=== PATIENT | male | born 1945 | race Caucasian/White ===

== ENCOUNTER 2017-01-02 13:56 | Inpatient (IN) | payer OTHER, MEDICARE ==
[~2017-01-02] VITALS: Ht 165.1 cm; Wt 75.6 kg
--- NOTE | 2017-01-11 13:36 | MH ---
cc: Cathy PITTMAN M.D. DATE OF ADMISSION: 01/15/2017 ADMITTING DIAGNOSIS Osteoarthritic degeneration both left and right knees. REASON FOR ADMISSION Now for left and right total knee arthroplasty. ADMISSION HISTORY AND PHYSICAL This pleasant 71-year-old male is being admitted today for right and left total knee arthroplasty due to severe painful osteoarthritic degeneration of both knees. OTHER PAST HISTORY 1. 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 2. He has a history of diabetes. 3. He has had prostate cancer in the past. 4. He has broken his thumb in the past. 5. He has kidney problems. 6. Neck and back pain. 7. Dry skin. PREVIOUS SURGERIES 1. Arthroscopic surgery on his right knee in 1999. 2. Broken thumb repair in 2002. 3. Colonoscopy in 2016. CURRENT MEDICATIONS 1. . 2. Metformin. SOCIAL HISTORY He does not smoke or drink. REVIEW OF SYSTEMS Noncontributory. FAMILY HISTORY Noncontributory. ALLERGIES He has no known allergies. PHYSICAL EXAMINATION GENERAL: We find a 71-year-old male, well-developed, well-nourished, oriented x 3 complaining of pain in his knees. VITAL SIGNS: Blood pressure 120/72, pulse 78 and regular, respirations 16, temperature 97.5, pulse oximetry 97% on room air. HEENT: Eyes PERRL, EOMI. Ears, nose and mouth clear. NECK: Supple. LUNGS: Clear. HEART: Regular rate. ABDOMEN: Soft. Positive bowel sounds, nontender. EXTREMITIES: Both knees are tender with crepitance throughout range of motion. Some genu varus deformity. Neurovascularly intact to his toes. IMPRESSION AT THIS TIME Severe painful osteoarthritic degeneration both knees. PLAN Admission for bilateral total knee arthroplasty today. The patient is given prescription for postoperative pain and anticoagulation control in the office. He understands the use Hibiclens scrub and Bactroban preoperatively. Plans on going to [facility] if possible after surgery. MD BENNY Guerrero/TASIA /1:24 PM /1:27 PM
[2017-01-12] MEDS ORDERED: METF500T PO (12:32)
[2017-01-12] MEDS ORDERED: ICOS1CAP PO (12:34)
[2017-01-12] MEDS ORDERED: MAGN400T14 PO (12:35)
[2017-01-12] MEDS ORDERED: CHOL400D2 PO (12:36)
[2017-01-12] MEDS ORDERED: MULTTAB67 PO (12:37)
[2017-01-15] MEDS ORDERED: LACTATED RINGER'S 1000 ML IV PRN (07:00)
[2017-01-15] MEDS ORDERED: METOPROLOL TARTRATE 25 MG TAB PO PRN (07:00)
[2017-01-15] MEDS ORDERED: CHLORHEXIDINE GLUCONATE 2 % 1 PACK (2 CLOTHS) TOPICAL PRN (07:00)
[2017-01-15] MEDS ORDERED: VANCOMYCIN 1000 MG/NS 250 ML (for <70 kg) IV SCH ×2 (07:00)
[2017-01-15] MEDS ORDERED: POVIDONE IODINE 5% (ANTISEPSIS KIT) 4 APPLICATIONS EACH NARE PRN (07:00)
[2017-01-15] MEDS ORDERED: SODIUM CHLORID 0.9% 500 ML IV PRN (07:00)
[2017-01-15] MEDS ORDERED: CHLORHEXIDINE GLUCONATE 4% SOLN 120 ML BTL TOPICAL SCH (07:00)
[2017-01-15] MEDS ORDERED: ceFAZolin 2 GM PREMIX 50 ML IV SCH (07:00)
[2017-01-15] MEDS ORDERED: INSULIN HUMAN REGULAR 1,000 UNITS/10 ML VIAL SQ PRN (07:00)
[2017-01-15] MEDS ORDERED: BUPIVACAINE LIPOSO PF 1.3% INJ 20 ML, BUPIVACAINE PF 0.25% INJ 20 ML in SODIUM CHLORIDE... P-ARTICULR SCH (07:30)
[2017-01-15 07:31] VITALS: BP 142/86; PULSE 65; RESP 16; TEMP 98.1; O2SAT 97
[2017-01-15] MEDS ORDERED: SODIUM CHLORIDE 0.9% FLUSH 5 ML FLUSH IVF PRN (09:15)
[2017-01-15] MEDS ORDERED: Post-op Orders (for Pharmacy) MISC XX ONE (09:15)
[2017-01-15] MEDS ORDERED: ACETAMINOPHEN 325 MG TAB PO PRN (09:15)
[2017-01-15] MEDS ORDERED: diphenhydrAMINE HCL 50 MG/ML VIAL IV PRN (09:15)
[2017-01-15] MEDS ORDERED: ONDANSETRON HCL 4 MG/2 ML VIAL IVP PRN (09:15)
[2017-01-15] MEDS ORDERED: TEMAZEPAM 15 MG CAP PO PRN (09:15)
[2017-01-15] MEDS ORDERED: TRANEXAMIC ACID INJ 0 MG in SODIUM CHLORIDE 0.9% INJ 100 ML IV SCH (09:15)
[2017-01-15] MEDS ORDERED: NALOXONE HCL 0.4 MG/ML AMP IV PRN (09:15)
--- NOTE | 2017-01-15 09:18 | HHI.FF ---
Face to Face Verification Diagnosis: (1) Status post total bilateral knee replacement Physical Therapy Gait training Knee: Total knee, Protocol: Right, Protocol: Left, Gait training, Full weight bearing Nursing RN: 3 days/week x 2 weeks Nursing: Karl teaching, Dressing changes Dressing Changes: Daily dressing change, 4x4s, Gauze, Paper tape I have seen patient Segudno ArreolaJr on 01/15/17. My clinical findings support the need for the requested home health care services because: Limited ability to care for self High risk of falls I certify that my clinical findings support that this patient is homebound because: Unsteady gait/balance Cathy Rivas MD Jan 15, 2017 09:17
[2017-01-15] MEDS ORDERED: WALKER WHEELS/F1 MIS (09:20)
[2017-01-15] MEDS ORDERED: CPMMACHINE (09:21)
[2017-01-15] MEDS ORDERED: COMMODE 3-IN-11 MIS (09:22)
[2017-01-15] MEDS ORDERED: MIDAZOLAM HCL 2 MG/2 ML VIAL ONE (09:37)
[2017-01-15] MEDS ORDERED: FAMOTIDINE 20 MG/2 ML VIAL ONE (09:37)
[2017-01-15] MEDS ORDERED: MORPHINE SULFATE 30 MG/30 ML PCA IV SCH (10:00)
[2017-01-15] MEDS ORDERED: TRANEXAMIC ACID INJ 750 MG in SODIUM CHLORIDE 0.9% INJ 100 ML IV SCH ×2 (10:30→13:30)
[2017-01-15] MEDS ORDERED: fentaNYL CITRATE 250 MCG/5 ML AMP ONE ×2 (10:39→14:04)
--- NOTE | 2017-01-15 10:58 | EKG ---
Date Performed: 01/15/2017 Time Performed: 07:13:29 PTAGE: 71 years EKG: Sinus rhythm MODERATE VOLTAGE CRITERIA FOR LVH, CONSIDER NORMAL VARIANT BORDERLINE ECG NO PREVIOUS TRACING DOCTOR: Tee Crespo Interpretating Date/Time 01/15/2017 10:57:43
[2017-01-15] MEDS ORDERED: ceFAZolin INJ 1,000 MG VIAL TOPICAL ONE (11:13)
[2017-01-15] MEDS ORDERED: LACTATED RINGER'S 1000 ML INJ 1,000 ML IV ONE (12:00)
[2017-01-15] MEDS ORDERED: PROPOFOL 200 MG/20 ML AMP IV ONE (12:00)
[2017-01-15] MEDS ORDERED: ePHEDrine/NS 25 MG/5 ML SYR IV ONE (12:00)
[2017-01-15] MEDS ORDERED: ONDANSETRON HCL 4 MG/2 ML VIAL IV PUSH ONE (12:00)
[2017-01-15] MEDS ORDERED: PHENYLEPH/NS 1000 MCG/10 ML SYR IV ONE (12:00)
[2017-01-15] MEDS ORDERED: DEXAMETHASONE SOD PHOS PF 10 MG/ML VIAL IV ONE (12:25)
[2017-01-15] MEDS ORDERED: ceFAZolin INJ 1,000 MG VIAL ONE (12:25)
[2017-01-15] MEDS ORDERED: BUPIVACAINE HCL PF 0.5% 30 ML VIAL NERV BLOCK ONE (12:25)
[2017-01-15] MEDS ORDERED: DO NOT ADM ANY ANTICOAGULANT DRUGS PRN (14:38)
[2017-01-15] MEDS ORDERED: *MEPERIDINE 25 MG INJ VIAL PERIprocedural Use ONLY ONE (15:13)
--- NOTE | 2017-01-15 15:40 | PD.CONS ---
HPI Service [facility] Hospitalists Consult Requested By Dr. Rivas Reason for Consult Medical management. Primary Care Physician Wood Bennett, Diagnoses: (1) Status post total bilateral knee replacement (2) Osteoarthritis of knees, bilateral History of Present Illness Mr. Arreola is a 71-year old male patient with a known history of type 2 diabetes mellitus, prostate cancer, bilateral osteoarthritis of knees, and chronic neck and back pain who is status post bilateral knee arthroplasty by Dr. Rivas. Hospitalist team has been consulted for medical management. Patient seen and examined in PACU, patient still lethargic, just received nerve block upon arrival to PACU. Very difficult to obtain medical history from patient, medical records were reviewed as well. Patient cardiac nurse practitioner showing a possible bundle branch block with increased rate. A STAT EKG was ordered and reviewed showing sinus tachycardia with left bundle branch block with prior EKG showing sinus rhythm. Patient denies any cardiac history. Does state he has chest pain. Too lethargic to assess characteristics. Dr. Mckay called and updated regarding change in EKG and patient condition, consulted. Review of Systems ROS Limitations: Clinical Condition (post op) Except as stated in HPI: all other systems reviewed are Neg Past Family Social History Allergies: Coded Allergies: No Known Allergies (Unverified , 09/30/11) Past Medical History Osteoarthritis bilateral knee Type 2 diabetes mellitus hyperlipidemia history of prostate cancer Chronic back and neck pain Past Surgical History Denies any prior history. Reported Medications Active Reported Multiple Vitamin 1 Tab 1 Tab PO DAILY Vitamin D (Cholecalciferol) 400 Unit/Ml Drops 400 Units PO DAILY Magnebind-400 Rx (Magnesium-Calcium Carbonates-Folic Acid) 400-200-1 Mg Tab 1 Tab PO DAILY Vascepa (Icosapent) 1 Gm Cap 2 Gm PO DAILY Metformin (Metformin HCl) 500 Mg Tab 500 Mg PO BIDPC With meals Active Ordered Medications Current Medications Medications (Trade) Dose Ordered Sig/Gregory Route Start Time Stop Time Status Last Admin Lactated Ringer's 1,000 ml @ 30 mls/hr Q24H PRN IV 01/15/17 07:00 01/18/17 06:59 01/15/17 07:45 (NS 500 ml Inj) 500 ml @ 30 mls/hr [id number] PRN IV 01/15/17 07:00 01/18/17 06:59 Chlorhexidine Gluconate 1 applic 1 applic ONCE TOPICAL 01/15/17 07:00 01/18/17 06:59 Tranexamic Acid 750 mg/Sodium Chloride 107.5 ml @ 200 mls/hr ONCE IV 01/15/17 10:30 01/15/17 16:30 01/15/17 10:38 (Cyklokapron Inj/ NS Inj) 107.5 ml @ 200 mls/hr ONCE IV 01/15/17 13:30 01/15/17 19:30 (Vitamin D Liq) 400 units DAILY PO 01/16/17 09:00 (Glucophage) 500 mg BIDPC PO 01/15/17 18:00 Patient Own Medication PT OWN MED: VASC... DAILY PO 01/16/17 09:00 Future Hold Patient Own Medication PT OWN MED: MAGNEBIND-400Rx 1 TAB PO DAILY DAILY PO 01/16/17 09:00 Future Hold (Lr 1000 ml Inj) 1,000 ml @ 80 mls/hr [id number] IV 01/15/17 09:00 (NS Flush) 2 ml UNSCH PRN IVF 01/15/17 09:15 IV Flush 2 ml 2 ml BID IVF 01/15/17 21:00 (Ancef Inj/NS Inj) 100 ml @ 200 mls/hr Q6H IV 01/15/17 17:00 01/16/17 05:29 (Lovenox Inj) 30 mg Q12H SQ 01/16/17 14:00 ([place] 10-325 Mg) 1 tab Q4H PRN PO 01/15/17 09:15 ([place] 10-325 Mg) 2 tab Q6H PRN PO 01/15/17 09:15 (Tylenol) 650 mg Q6H PRN PO 01/15/17 09:15 (Theragran M Tab) 1 tab BID PO 01/16/17 21:00 03/17/17 20:59 (Zofran Inj) 4 mg Q6H PRN IVP 01/15/17 09:15 (Colace) 100 mg BID PO 01/16/17 21:00 (Restoril) 15 mg HS PRN PO 01/15/17 09:15 (Narcan Inj) 0.4 mg UNSCH PRN IV 01/15/17 09:15 (Benadryl Inj) 25 mg Q6H PRN IV 01/15/17 09:15 (Morphine 1 Mg/ ml SNOWMAKER) 30 mg UNSCH IV 01/15/17 10:00 SNOWMAKER Dosage Infused (Pha) 1 Q8HR .XX 01/15/17 14:00 Miscellaneous Information ALL NURSING DEPARTME... UNSCH PRN .XX 01/15/17 14:38 01/16/17 14:37 Family History Patient states family medical history significant for diabetes mellitus, unsure of which side. Social History Denies any history of or current tobacco use. Does admit to occasional alcohol use. Denies any illicit drug use. Physical Exam Vital Signs Vital Signs Date Time Temp Pulse Resp B/P Pulse Ox O2 Delivery O2 Flow Rate FiO2 01/15/17 07:31 98.1 65 16 142/86 97 Physical Exam GENERAL: Well-nourished, well-developed patient, in no apparent distress. SKIN: No rashes, ecchymoses or lesions. Cool and dry. HEENT: Atraumatic. Normocephalic. Pupils equal round and reactive. Extraocular motions intact. No scleral icterus. No injection or drainage. Nose without bleeding. Airway patent. NECK: Trachea midline. No JVD or lymphadenopathy. Supple. CARDIOVASCULAR: Tachycardic rhythm. No murmur appreciated. STAT EKG ordered. RESPIRATORY: Clear to auscultation. Breath sounds equal bilaterally. No wheezes , rales, or rhonchi. GASTROINTESTINAL: Abdomen soft, non-tender, nondistended. No guarding. MUSCULOSKELETAL: Extremities without clubbing, cyanosis, or edema. Bilateral knee dressings noted, with bilateral splints. Nerve block given. NEUROLOGICAL: Awake and alert. Cranial nerves II through XII intact. Motor and sensory grossly within normal limits. Five out of 5 muscle strength in all muscle groups. Normal speech. Laboratory Laboratory Tests Test 01/15/17 07:40 Blood Type B NEGATIVE Antibody Screen NEGATIVE Blood Bank Comment Assessment and Plan Assessment and Plan Mr. Arreola is a 71-year old male patient with a known history of type 2 diabetes mellitus, prostate cancer, bilateral osteoarthritis of knees, and chronic neck and back pain who is status post bilateral knee arthroplasty by Dr. Rivas. Hospitalist team has been consulted for medical management. Status post bilateral knee arthroplasty - Control pain. Morphina IV SNOWMAKER PRN. [place] tablets PO PRN per pain scale. Monitor for constipation, Colace 100 mg PO BID. Milk of magnesium PRN. - Activity and dressing changes per orthopedic surgery recommendations. - PT evaluation and treatment. OOB as tolerated. Arrhythmia with possible left bundle branch block, acute - STAT EKG performed and reviewed showing sinus tachycardia with left bundle branch block. - Cardiology called and consulted, appreciate input. Spoke with Dr. Mckay, watcher [employer] cardiology, will evaluate patient. - First trop negative, trend. Follow. - Repeat EKG this PM. - 2-D ECHO ordered. CPK ordered and pending. Follow. - Continuous cardiac monitoring. Monitor closely. - Supplemental oxygen as needed to keep SpO2 > 92%. Type 2 diabetes mellitus - Place patient on ACCU checks, sliding scale insulin, cover as needed. DVT prophylaxis: SCDs/Chemical prophylaxis per surgery recommendations. Thank you for this consult. Will follow with you. Written by Ade Watson, acting as scribe for Dr. Brown on 01/15/17 at 15:51. This note was transcribed by jacob BLACK. I, Dr. Lani Steele personally performed the history, physical exam, and medical decision making; and confirmed the accuracy of the information in the transcribed note. Authenticated by Dr. Lani Steele on 01/15/17 at 15:51. Ade Watson Jan 15, 2017 15:40 Lani Steele MD Jan 15, 2017 19:55
--- NOTE | 2017-01-15 15:44 | RADRPT ---
EXAM DATE/TIME: 01/15/2017 15:12 [facility] COMPARISON: No previous studies available for comparison. INDICATIONS : Post op left knee surgery MEDICAL HISTORY : None. SURGICAL HISTORY : None. ENCOUNTER: Initial ACUITY: 1 day PAIN SCORE: Non-responsive. LOCATION: Left knee FINDINGS: AP and lateral views of the knee following arthroplasty reveals a prosthesis in anatomic alignment. F racture is not appreciated. CONCLUSION: Status post total knee arthroplasty. Piotr Singletary MD FACR Board Certified Radiologist. This report was verified electronically.
[2017-01-15] MEDS ORDERED: MAGNESIUM HYDROXIDE SUSP 30 ML CUP PO PRN (15:45)
[2017-01-15] MEDS ORDERED: ADENOSINE IV SOLN 3 MG/ML 2 ML VIAL IV PUSH ONE (15:45)
[2017-01-15] MEDS ORDERED: DILTIAZEM HCL 25 MG/5 ML VIAL IV ONE (15:45)
[2017-01-15] MEDS: LACTATED RINGER'S 1000 ML INJ 1,000 ML IV SCH ×3 (16:00→23:09)
--- NOTE | 2017-01-15 16:08 | RADRPT ---
EXAM DATE/TIME: 01/15/2017 15:17 [facility] COMPARISON: No previous studies available for comparison. INDICATIONS : Post op right knee surgery MEDICAL HISTORY : None. SURGICAL HISTORY : None. ENCOUNTER: Initial ACUITY: 1 day PAIN SCORE: Non-responsive. LOCATION: Right knee FINDINGS: Postsurgical features of right knee arthroplasty. The arthroplasty components are in anatomic alignme nt. No significant bony fracture is identified. CONCLUSION: 1. Expected immediate postoperative appearance of right knee arthroplasty without significant acute b rosemary fracture. Flex Ashton MD on January 15, 2017 at 16:05 Board Certified Radiologist. This report was verified electronically.
[2017-01-15 16:30] LABS: AUTOMATED NEUTROPHIL # 8.7 TH/MM3 (1.8-7.7); BASOPHIL % 0.4 % (0.0-2.0); EOSINOPHIL % 0.2 % (0.0-4.0); HEMATOCRIT 37.7 % (39.0-51.0); HEMO FLAGS DIFF FINAL; LYMPH % 6.5 % (9.0-44.0); LYMPHOCYTE # 0.6 TH/MM3 (1.0-4.8); MEAN CELL VOLUME 88.6 FL (80.0-100.0); MEAN CORPUSCULAR HEMOGLOBIN 30.9 PG (27.0-34.0); MEAN CORPUSCULAR HGB CONC 34.9 % (32.0-36.0); NEUT % 90.9 % (16.0-70.0); PLATELET COUNT 139 TH/MM3 (150-450); RED BLOOD COUNT 4.25 MIL/MM3 (4.50-5.90); RED CELL DISTRIBUTION WIDTH 13.6 % (11.6-17.2); WHITE BLOOD COUNT 9.6 TH/MM3 (4.0-11.0)
[2017-01-15 16:50] LABS: ANION GAP 11 MEQ/L (5-15); AST (GOT) 22 U/L (15-37); BICARBONATE 22.4 MEQ/L (21.0-32.0); BLOOD UREA NITROGEN 19 MG/DL (7-18); CHLORIDE 108 MEQ/L (98-107); GLOMERULAR FILTRATION RATE 52 ML/MIN (>89); POTASSIUM 4.6 MEQ/L (3.5-5.1); SODIUM (NA) 141 MEQ/L (136-145)
[2017-01-15 16:51] LABS: ALT (GPT) 27 U/L (12-78)
[2017-01-15 16:54] LABS: ALKALINE PHOSPHATASE 108 U/L (45-117); CREATINE KINASE 215 U/L (39-308)
[2017-01-15] MEDS ORDERED: metFORMIN HCL 500 MG TAB PO SCH (18:00)
[2017-01-15] MEDS ORDERED: PILL SPLITTER OTHER PRN (19:45)
[2017-01-15 20:00] VITALS: BP 131/97; PULSE 102; PULSE 96; RESP 27; TEMP 98.4; O2SAT 98
[2017-01-15 20:36] VITALS: O2SAT 97
[2017-01-15 22:00] VITALS: PULSE 98
[2017-01-15] MEDS: PCA - TOTAL MG MORPHINE DELIVERED PER SHIFT SCH (22:22)
[2017-01-15] MEDS: METOPROLOL TARTRATE 25 MG TAB PO SCH (23:08)
[2017-01-15] MEDS: ASPIRIN EC 81 MG TABEC PO SCH (23:08)
[2017-01-15] MEDS: ATORVASTATIN 10 MG TAB PO SCH (23:08)
[2017-01-15] MEDS: DOCUSATE SODIUM 50 MG/SENNA 8.6 MG TAB PO SCH (23:09)
[2017-01-15] MEDS: SODIUM CHLORIDE 0.9% FLUSH 5 ML FLUSH IVF SCH (23:24)
[2017-01-16] VITALS (10 sets, daily range): BP systolic 101–145; BP diastolic 55–72; PULSE 67–99; RESP 18–26; TEMP 97.8–99.1; O2SAT 92–100
[2017-01-16 00:10] LABS: CREATINE KINASE 430 U/L (39-308)
[2017-01-16 00:54] LABS: CKMB 5.3 NG/ML (0.5-3.6)
[2017-01-16 04:34] LABS: HEMATOCRIT 32.5 % (39.0-51.0); REVIEW FLAG FINAL
[2017-01-16 05:00] LABS: ANION GAP 10 MEQ/L (5-15); AST (GOT) 23 U/L (15-37); BICARBONATE 25.2 MEQ/L (21.0-32.0); BLOOD UREA NITROGEN 17 MG/DL (7-18); CHLORIDE 107 MEQ/L (98-107); GLOMERULAR FILTRATION RATE 63 ML/MIN (>89); POTASSIUM 4.2 MEQ/L (3.5-5.1); SODIUM (NA) 142 MEQ/L (136-145)
[2017-01-16 05:04] LABS: ALKALINE PHOSPHATASE 84 U/L (45-117); ALT (GPT) 22 U/L (12-78); TOTAL BILIRUBIN ADULT 0.9 MG/DL (0.2-1.0)
[2017-01-16] MEDS: PCA - TOTAL MG MORPHINE DELIVERED PER SHIFT SCH ×2 (06:47→14:00)
--- NOTE | 2017-01-16 07:09 | MB ---
cc: ADRIENNE WING DATE OF CONSULTATION 01/15/2017 DATE OF 1945 REASON FOR CONSULTATION Chest pain HISTORY OF PRESENT ILLNESS 71-year-old male with a past medical history significant for diabetes, prostate cancer, bilateral osteoarthritis, hyperlipidemia, chronic back and neck pain who presented to the hospital for elective bilateral knee replacement with Dr. Rivas who has been consulted for chest pain and EKG changes. The patient denies having any chest pain or cardiovascular complaints. After surgery, however, per reports after he had the bilateral knee replacement, he was on PACU on observation, seemed lethargic when he complained of some apparent chest discomfort. EKG done showed sinus tachycardia with a left bundle branch which appeared to be new, thus cardiology has been consulted for further management and evaluation. On furthering questioning the patient, he wants to clarify that he did not have any chest pain in the PACU and that what he had was stiffness in his legs and knees after his surgery and that was all. He denies any cardiovascular interventions in the past, shortness of breath, dizziness, nausea, vomiting, diarrhea, diaphoresis. He is not seen by any leather production worker on an outpatient basis. REVIEW OF SYSTEMS Negative except for what is mentioned in the HPI. PAST MEDICAL HISTORY 1. Osteoarthritis bilateral knees 2. Type 2 diabetes mellitus 3. Hyperlipidemia 4. Prostate cancer 5. Chronic back and neck pain. PAST SURGICAL HISTORY None until today. ALLERGIES NO KNOWN DRUG ALLERGIES home HOME MEDICATIONS 1. Multivitamin one tablet p.o. daily 2. Vitamin D 3. Vascepa 1 gm p.o. daily 4. Metformin 500 mg p.o. b.i.d. FAMILY HISTORY Family is positive for diabetes. SOCIAL HISTORY Denies tobacco use. Reports occasional alcohol use. Denies illicit drug use. PHYSICAL EXAMINATION VITAL SIGNS: Temperature 97, respiratory rate 16, heart rate 94, blood pressure 136/68, O2 sat 99% on two liters nasal cannula. GENERAL: Awake, alert , and oriented x3 in no acute distress. NECK: No JVD, no carotid bruits. HEART: Regular rate and rhythm. No murmurs, rubs or gallops. LUNGS: Clear bilaterally on auscultation. No wheezes, no rhonchi or rales. ABDOMEN: Soft, nontender and nondistended. EXTREMITIES: No cyanosis or edema. Pulses throughout. DATA CBC hemoglobin 13, hematocrit 37, platelet count 139. Chemistries sodium 141, potassium 4.6, BUN 19, creatinine 1.36. First set of troponin less than 0.02. ASSESSMENT/PLAN 71-year-old male with cardiac risk factors that include hypertension, hyperlipidemia and age who presents with chest pain in the setting of a recent bilateral knee replacement surgery. On re-evaluation, he does not have any cardiovascular complaints. His first set of troponin are less than 0.02 which is negative. However, he does have a persistent left bundle branch block which seems to be new. He denies any chest pain, shortness of breath, palpitations, thus it would be reasonable to admit to the intensive care unit, cycle cardiac markers, order an echocardiogram to assess LV systolic dysfunction, start aspirin and beta blockers, continue telemetry monitoring. It is possible that the patient had an intermittent left bundle branch block in the setting of the tachycardia and the postoperative period. No need for any current invasive cardiac management at this time. He will to follow up with cardiology upon discharge. We will continue to follow. Thank you for the opportunity to participate in the care of this patient. Further therapy to be determined. MD ZHAO Hoang/RODOLFO /7:04 PM /6:55 AM HARI
[2017-01-16] MEDS ORDERED: ICOSAPENT ETHYL PO SCH (09:00)
[2017-01-16] MEDS: CHOLECALCIFEROL (VIT D3) LIQ 400 UNITS/ML 50 ML BOTTLE PO SCH (09:00)
[2017-01-16] MEDS ORDERED: MAGNEBIND PO SCH (09:00)
[2017-01-16] MEDS ORDERED: [UNRECOGNIZED DRUG - OTHER] PO SCH (09:00)
[2017-01-16] MEDS ORDERED: NON-FORMULARY DRUG (Multiple Vitamin 1 TAB) PO SCH (09:00)
[2017-01-16] MEDS: SODIUM CHLORIDE 0.9% FLUSH 5 ML FLUSH IVF SCH ×2 (09:00→22:46)
[2017-01-16] MEDS: ATORVASTATIN 10 MG TAB PO SCH (10:18)
[2017-01-16] MEDS: DOCUSATE SODIUM 50 MG/SENNA 8.6 MG TAB PO SCH ×2 (10:19→22:46)
[2017-01-16] MEDS: METOPROLOL TARTRATE 25 MG TAB PO SCH ×2 (10:19→22:45)
[2017-01-16] MEDS: ASPIRIN EC 81 MG TABEC PO SCH (10:19)
[2017-01-16] MEDS: LACTATED RINGER'S 1000 ML INJ 1,000 ML IV SCH ×2 (10:21→22:30)
--- NOTE | 2017-01-16 10:55 | MP ---
cc: Cathy RIVAS DATE OF SURGERY 01/15/2017 PREOPERATIVE DIAGNOSIS Osteoarthritic degeneration right and left knees. POSTOPERATIVE DIAGNOSIS Osteoarthritic degeneration right and left knees. SURGERY PERFORMED Right and left total knee arthroplasties using consensus components size 4 femur in both left and right, size 3 tibia in both left and right, 10 inserts in both left and right and a size 1 patella in the right and a 2 patella in the left with two batches of DePuy cement in each knee. SURGEON Dr. Rivas COLD MEAT CHEF ALICIA Leal ANESTHESIA General intubation PROCEDURE After successful induction of anesthesia, the patient is placed on the operating room table in the supine position. The right and left knees were prepped and draped in the usual manner. A tourniquet is inflated at the right upper thigh and set to 300 mmHg pressure after exsanguination of the right lower extremity. A longitudinal incision is made extending from 3 inches proximal to the superior pole of the patella, across the patella in longitudinal fashion, and down past the insertion of the tibial tubercle into the proximal tibia. The incision is carried down through subcutaneous tissue along the medial aspect of the patella and retinaculum, down through the capsule to expose the knee joint. The patella and patellar tendon are freed up enough to allow the patella to be inverted and retracted off the lateral side of the knee joint. The knee joint is left exposed. Small osteophytes are removed. All soft tissue is removed to allow proper position of the femoral and tibial cutting jig guide. The first femoral jig is then inserted along the distal end of the femur after first measuring to decide whether this is a small, medium, or large component. The notch is then drilled and the tibial cutting guide inserted into the femoral cutting guide, along with the ankle brace to allow for proper measurement of the tibial cutting surface that needed to be resected. Pins are inserted into the tibial cutting jig and femoral cutting jig to hold them in place. An oscillating saw is then used to resect the surface of the tibia. The surface of the tibia is then completely removed using sharp and blunt dissection. The anterior and posterior cuts of the femur are then made as well using an oscillating saw through the cutting guide. All guides are then removed and the varus/valgus angulation cutting guide applied to the femur for proper measurement of the proper amount of valgus. The anterior cutting guide for the femur is then inserted at the anterior femoral cuts made. Next, the first block trial is inserted into the femur to allow for proper condyle drill holes to be made which are then made followed by removal of the bone between the condyles using an oscillating saw as well as the bone removed at the most posterior surface of the condyle. After this, this guide is removed and the chamfer cuts made using the chamfer cutting guide from both anterior and posterior. Next, the femoral trial is then inserted, the tibial surface reflected anterior to expose the tibial surface and a tibial stem guide is inserted after first measuring for a standard, standard plus, large, or large plus surface to be used. After the stem is impacted the trial tibial surface is applied followed by the trial meniscal components. After full range of motion is found with the appropriate length meniscal components varying the patella is prepared by resecting the posterior aspect of the patella using an oscillating saw, inserting a trial. The trial is then removed and the cruciate cutting guide applied using the bur to cut the cruciate cuts. After cruciate cuts are made all trials are removed. The wound is irrigated copiously with antibiotic solution and Water-Pik and the actual components inserted into place using the Consensus system. After the cement has hardened and the components are found to have full range of motion with no instability, the tourniquet is deflated, total tourniquet time being 57 minutes at 300 mmHg pressure. The left knee was then done using the tourniquet and total tourniquet time being 55 minutes at 300 mmHg. The wounds again were irrigated copiously with antibiotic solution, meticulous hemostasis achieved. No drain utilized. Deep fascia approximated in each knee and using number #2 quill, subcutaneous tissue approximated using interrupted and running 2-0 and 4-0 Monocryl sutures and Steri-Strips, a sterile dressing and knee immobilizer. No drain utilized. Estimated blood loss throughout the whole procedure 200 cc. Sponge and suture count correct. The hair assistant was present during the entire procedure including patient positioning and procedure. The medical necessity of a nurse practitioner as hair assistant was indicated in this case due to the surgical complexity of the case itself. During the surgical case, the certified ophthalmic surgical assistant was working the back table while my surgical endoscopist, COMPUTER NETWORKER, was directly assisting me. The patient tolerated the procedure well and left the operating room in satisfactory condition. J. MD BENNY Bergeron/JAMESL /2:12 PM /10:41 AM
--- NOTE | 2017-01-16 11:29 | PD.ORT.PN ---
Subjective Subjective Remarks pt fairly comfortable today. No complaints of chest pain. Objective Vitals Vital Signs Date Time Temp Pulse Resp B/P Pulse Ox O2 Delivery O2 Flow Rate FiO2 01/16/17 08:05 99 Nasal Cannula 1.50 01/16/17 06:47 12 01/16/17 06:00 67 01/16/17 04:00 70 01/16/17 04:00 99.1 97 18 101/58 97 01/16/17 02:00 71 01/16/17 00:00 97.8 99 24 104/59 100 01/16/17 00:00 99 01/15/17 22:22 10 01/15/17 22:00 98 01/15/17 20:36 97 Nasal Cannula 3.00 01/15/17 20:00 98.4 102 27 131/97 98 01/15/17 20:00 96 01/15/17 18:00 97.6 94 16 136/68 99 Nasal Cannula 2 01/15/17 17:00 91 16 135/63 99 Nasal Cannula 2 01/15/17 16:30 96 16 149/86 98 Nasal Cannula 2 01/15/17 16:30 15 01/15/17 16:25 15 01/15/17 16:13 15 01/15/17 16:00 97.8 101 16 152/76 98 Nasal Cannula 2 01/15/17 15:45 91 15 158/82 96 Nasal Cannula 2 01/15/17 15:30 101 15 164/83 100 Nasal Cannula 3 01/15/17 15:15 111 14 123/81 99 Nasal Cannula 3 01/15/17 15:00 114 13 132/61 98 Nasal Cannula 4 01/15/17 14:45 98.1 96 12 135/95 97 Nasal Cannula 4 I/O 01/15/17 01/15/17 01/15/17 01/16/17 01/16/17 01/16/17 07:00 15:00 23:00 07:00 15:00 23:00 Intake Total 1200 ml 1232 ml 458 ml Output Total 200 ml 1100 ml 750 ml Balance 1000 ml 132 ml -292 ml Intake Oral 480 ml 120 ml IV Total 752 ml 338 ml Other 1200 ml Output Urine Total 1100 ml 750 ml Estimated Blood Loss 200 ml # Bowel Movements 0 0 Result Diagram: 01/16/17 03301/16/17 6542 Objective Remarks Knee dressings dry and intact. No calf tenderness. Assessment & Plan Ortho Post Op Day #: 1 Problem List: Assessment and Plan Doing well overall. Transfer to ortho floor. Plan rehab at [place]. Cathy Rivas MD Jan 16, 2017 11:29
--- NOTE | 2017-01-16 15:11 | HHI.PR ---
Subjective Remarks Seen earlier in the morning; Patient feels much better. No tachycardia, no chest pain or sob. No n/v/d/c. Says he is hungry. Objective Vitals Vital Signs Date Time Temp Pulse Resp B/P Pulse Ox O2 Delivery O2 Flow Rate FiO2 01/16/17 12:00 70 01/16/17 12:00 98.5 70 18 118/55 96 01/16/17 10:00 76 01/16/17 08:05 99 Nasal Cannula 1.50 01/16/17 08:00 98.3 68 26 111/56 99 01/16/17 08:00 68 01/16/17 06:47 12 01/16/17 06:00 67 01/16/17 04:00 70 01/16/17 04:00 99.1 97 18 101/58 97 01/16/17 02:00 71 01/16/17 00:00 97.8 99 24 104/59 100 01/16/17 00:00 99 01/15/17 22:22 10 01/15/17 22:00 98 01/15/17 20:36 97 Nasal Cannula 3.00 01/15/17 20:00 98.4 102 27 131/97 98 01/15/17 20:00 96 01/15/17 18:00 97.6 94 16 136/68 99 Nasal Cannula 2 01/15/17 17:00 91 16 135/63 99 Nasal Cannula 2 01/15/17 16:30 96 16 149/86 98 Nasal Cannula 2 01/15/17 16:30 15 01/15/17 16:25 15 01/15/17 16:13 15 01/15/17 16:00 97.8 101 16 152/76 98 Nasal Cannula 2 01/15/17 15:45 91 15 158/82 96 Nasal Cannula 2 01/15/17 15:30 101 15 164/83 100 Nasal Cannula 3 01/15/17 15:15 111 14 123/81 99 Nasal Cannula 3 I/O 01/15/17 01/15/17 01/15/17 01/16/17 01/16/17 01/16/17 07:00 15:00 23:00 07:00 15:00 23:00 Intake Total 1200 ml 1232 ml 458 ml 636 ml Output Total 200 ml 1100 ml 750 ml 550 ml Balance 1000 ml 132 ml -292 ml 86 ml Intake Oral 480 ml 120 ml 476 ml IV Total 752 ml 338 ml 160 ml Other 1200 ml Output Urine Total 1100 ml 750 ml 550 ml Estimated Blood Loss 200 ml # Bowel Movements 0 0 0 Result Diagram: 01/16/17 0330 01/16/17 0330 Imaging Last Impressions Knee X-Ray 01/15/17 0912 Signed Impressions: Service Date/Time: Sunday, January 15, 2017 15:12 - CONCLUSION: Status post total knee arthroplasty. Piotr Singletary MD Objective Remarks GENERAL: Well-nourished, well-developed patient, in no apparent distress. SKIN: No rashes, ecchymoses or lesions. Cool and dry. HEENT: Atraumatic. Normocephalic. Pupils equal round and reactive. Extraocular motions intact. No scleral icterus. No injection or drainage. Nose without bleeding. Airway patent. NECK: Trachea midline. No JVD or lymphadenopathy. Supple. CARDIOVASCULAR: RRR. No murmur appreciated. RESPIRATORY: Clear to auscultation. Breath sounds equal bilaterally. No wheezes , rales, or rhonchi. GASTROINTESTINAL: Abdomen soft, non-tender, nondistended. No guarding. MUSCULOSKELETAL: Extremities without clubbing, cyanosis, or edema. Bilateral knee dressings noted, with bilateral splints. Nerve block given. NEUROLOGICAL: Awake and alert. Cranial nerves II through XII intact. Motor and sensory grossly within normal limits. Five out of 5 muscle strength in all muscle groups. Normal speech. A/P Problem List: (1) Status post total bilateral knee replacement ICD Code: Z96.653 Status: Acute (2) Osteoarthritis of knees, bilateral ICD Code: M17.0 Status: Acute Assessment and Plan Mr. Arreola is a 71-year old male patient with a known history of type 2 diabetes mellitus, prostate cancer, bilateral osteoarthritis of knees, and chronic neck and back pain who is status post bilateral knee arthroplasty by Dr. Rivas. Hospitalist team has been consulted for medical management. Status post bilateral knee arthroplasty - Control pain. Morphina IV [employer]GER PRN. [place] tablets PO PRN per pain scale. Monitor for constipation, Colace 100 mg PO BID. Milk of magnesium PRN. - Activity and dressing changes per orthopedic surgery recommendations. - PT evaluation and treatment. OOB as tolerated. Tachycardia with left bundle branch block, acute - STAT EKG performed and reviewed showing sinus tachycardia with left bundle branch block. - Cardiology called and consulted, appreciate input. Spoke with Dr. 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 - Trop negative. CPK negative. - 2-D ECHO pending. - Continuous cardiac monitoring. Monitor closely. - Supplemental oxygen as needed to keep SpO2 > 92%. -Monitor on telemetry Type 2 diabetes mellitus - Place patient on ACCU checks, sliding scale insulin, cover as needed. DVT prophylaxis: SCDs/Chemical prophylaxis per surgery recommendations. Improved. HR is better controlled, transfer to ortho floor. Lani Steele MD Jan 16, 2017 15:11
[2017-01-16] MEDS: ENOXAPARIN SODIUM 30 MG/0.3 ML SYRINGE SQ SCH (16:43)
[2017-01-16] MEDS: INSULIN ASPART SUPPLEMENTAL SCALE SQ SCH ×2 (17:45→22:56)
[2017-01-16] MEDS ORDERED: DEXTROSE 50% IN WATER 50 ML VIAL(D50) IV PRN (17:45)
[2017-01-16] MEDS ORDERED: GLUCAGON 1 MG/ML VIAL OTHER PRN (17:45)
--- NOTE | 2017-01-16 18:38 | PD.CARD.PN ---
Subjective Subjective Remarks no CV complaints no overnight events negative cardiac markers EF 60% on ECHO EKG persistent LBBB Objective Medications Current Medications Medications (Trade) Dose Ordered Sig/Gregory Route Start Time Stop Time Status Last Admin Lactated Ringer's 1,000 ml @ 30 mls/hr Q24H PRN IV 01/15/17 07:00 01/18/17 06:59 01/15/17 07:45 (NS 500 ml Inj) 500 ml @ 30 mls/hr [id number] PRN IV 01/15/17 07:00 01/18/17 06:59 (Hibiclens 4% Top Soln) 1 applic ONCE TOPICAL 01/15/17 07:00 01/18/17 06:59 (Vitamin D Liq) 400 units DAILY PO 01/16/17 09:00 Patient Own Medication PT OWN MED: VASC... DAILY PO 01/16/17 09:00 Hold Patient Own Medication PT OWN MED: [id number] 1 TAB PO DAILY DAILY PO 01/16/17 09:00 Hold (Lr 1000 ml Inj) 1,000 ml @ 80 mls/hr [id number] IV 01/15/17 09:00 01/16/17 10:21 (NS Flush) 2 ml UNSCH PRN IVF 01/15/17 09:15 (NS Flush) 2 ml BID IVF 01/15/17 21:00 01/15/17 23:24 (Lovenox Inj) 30 mg Q12H SQ 01/16/17 14:00 01/16/17 16:43 ([place] 10-325 Mg) 1 tab Q4H PRN PO 01/15/17 09:15 ([place] 10-325 Mg) 2 tab Q6H PRN PO 01/15/17 09:15 (Tylenol) 650 mg Q6H PRN PO 01/15/17 09:15 01/16/17 18:17 (Theragran M Tab) 1 tab BID PO 01/16/17 21:00 03/17/17 20:59 (Zofran Inj) 4 mg Q6H PRN IVP 01/15/17 09:15 (Colace) 100 mg BID PO 01/16/17 21:00 (Restoril) 15 mg HS PRN PO 01/15/17 09:15 (Nilda-Colace) 1 tab BID PO 01/15/17 21:00 01/16/17 10:19 (Milk Of Magnesia Liq) 30 ml Q12H PRN PO 01/15/17 15:45 (Ecotrin Ec) 81 mg DAILY PO 01/15/17 19:15 01/16/17 10:19 (Lopressor) 12.5 mg Q12HR PO 01/15/17 21:00 01/16/17 10:19 (Lipitor) 10 mg DAILY PO 01/15/17 19:15 01/16/17 10:18 (Pill Splitter) 1 ea UNSCH PRN OTHER 01/15/17 19:45 (D50w (Vial) Inj) 50 ml UNSCH PRN IV 01/16/17 17:45 (Glucagon Inj) 1 mg UNSCH PRN OTHER 01/16/17 17:45 Vital Signs / I&O Vital Signs Date Time Temp Pulse Resp B/P Pulse Ox O2 Delivery O2 Flow Rate FiO2 01/16/17 16:00 99.1 82 18 127/72 92 01/16/17 12:00 70 01/16/17 12:00 98.5 70 18 118/55 96 01/16/17 10:00 76 01/16/17 08:05 99 Nasal Cannula 1.50 01/16/17 08:00 98.3 68 26 111/56 99 01/16/17 08:00 68 01/16/17 06:47 12 01/16/17 06:00 67 01/16/17 04:00 70 01/16/17 04:00 99.1 97 18 101/58 97 01/16/17 02:00 71 01/16/17 00:00 97.8 99 24 104/59 100 01/16/17 00:00 99 01/15/17 22:22 10 01/15/17 22:00 98 01/15/17 20:36 97 Nasal Cannula 3.00 01/15/17 20:00 98.4 102 27 131/97 98 01/15/17 20:00 96 I/O 01/15/17 01/15/17 01/15/17 01/16/17 01/16/17 01/16/17 07:00 15:00 23:00 07:00 15:00 23:00 Intake Total 1200 ml 1232 ml 458 ml 636 ml Output Total 200 ml 1100 ml 750 ml 550 ml Balance 1000 ml 132 ml -292 ml 86 ml Intake Oral 480 ml 120 ml 476 ml IV Total 752 ml 338 ml 160 ml Other 1200 ml Output Urine Total 1100 ml 750 ml 550 ml Estimated Blood Loss 200 ml # Bowel Movements 0 0 0 Physical Exam GENERAL: Well-nourished, well-developed patient. SKIN: Warm and dry. HEAD: Normocephalic. EYES: No scleral icterus. No injection or drainage. NECK: Supple, trachea midline. No JVD or lymphadenopathy. CARDIOVASCULAR: Regular rate and rhythm without murmurs, gallops, or rubs. RESPIRATORY: Breath sounds equal bilaterally. No accessory muscle use. GASTROINTESTINAL: Abdomen soft, non-tender, nondistended. EXTREMITIES: No cyanosis, or edema. NEUROLOGICAL: Awake, alert, and oriented x 3. Non-focal. Laboratory Laboratory Tests Test 01/15/17 01/16/17 23:10 03:30 Total Creatine Kinase 430 U/L Creatine Kinase MB 5.3 NG/ML Creatine Kinase MB % 1.2 % Troponin I LESS THAN 0.02 NG/ML Hemoglobin 11.6 GM/DL Hematocrit 32.5 % Sodium Level 142 MEQ/L Potassium Level 4.2 MEQ/L Chloride Level 107 MEQ/L Carbon Dioxide Level 25.2 MEQ/L Anion Gap 10 MEQ/L Blood Urea Nitrogen 17 MG/DL Creatinine 1.15 MG/DL Estimat Glomerular Filtration 63 ML/MIN Rate Random Glucose 204 MG/DL Calcium Level 8.6 MG/DL Total Bilirubin 0.9 MG/DL Aspartate Amino Transf 23 U/L (AST/SGOT) Alanine Aminotransferase 22 U/L (ALT/SGPT) Alkaline Phosphatase 84 U/L Total Protein 5.3 GM/DL Albumin 3.0 GM/DL Imaging Last Impressions Knee X-Ray 01/15/17 0912 Signed Impressions: Service Date/Time: Sunday, January 15, 2017 15:12 - CONCLUSION: Status post total knee arthroplasty. Piotr Singletary MD Assessment and Plan Problem List: (1) CAD (coronary artery disease) Assessment and Plan: No CV events No CV complaints Negative Cardiac markers x3 Normal LV function on ECHO Persistent LBBB on EKG Recommendations: Cont ASA and Lopressor F/U with cardiology upon discharge Sign off (2) Diabetes (3) Prostate cancer (4) Chronic kidney disease (5) Osteoarthritis of knees, bilateral Mckay-Lance Lovelace MD Jan 16, 2017 18:38
[2017-01-16] MEDS: MULTIVITAMINS/MINERALS THERAPEUTIC TAB PO SCH (22:46)
[2017-01-16] MEDS: DOCUSATE SODIUM 100 MG CAP PO SCH (22:46)
[2017-01-17] VITALS (8 sets, daily range): BP systolic 119–154; BP diastolic 60–75; PULSE 76–89; RESP 17–18; TEMP 96.2–99.9; O2SAT 91–96
[2017-01-17] MEDS: ENOXAPARIN SODIUM 30 MG/0.3 ML SYRINGE SQ SCH ×2 (03:09→13:38)
[2017-01-17] MEDS: ACETAMINOPHEN/HYDROcodone 325 MG/10 MG TAB PO PRN ×4 (04:23→22:26)
--- NOTE | 2017-01-17 07:01 | EKG ---
Date Performed: 01/15/2017 Time Performed: 15:37:16 PTAGE: 71 years EKG: SINUS TACHYCARDIA POSSIBLE LEFT ATRIAL ENLARGEMENT MARKED LEFT AXIS DEVIATION LEFT BUNDLE B RANCH BLOCK Compared to the previous tracing there is now a Left bundle branch block ABNORMAL ECG PREVIOUS TRACING : 01/15/2017 07.13 DOCTOR: Audrey Dee Interpretating Date/Time 01/17/2017 06:59:12
--- NOTE | 2017-01-17 07:01 | EKG ---
Date Performed: 01/15/2017 Time Performed: 22:06:12 PTAGE: 71 years EKG: Sinus rhythm LEFT BUNDLE BRANCH BLOCK ABNORMAL ECG Compared to prior tracing no significant change PREVIOUS TRACING : 01/15/2017 15.37 DOCTOR: Audrey Dee Interpretating Date/Time 01/17/2017 06:59:19
[2017-01-17 07:12] LABS: HEMATOCRIT 27.9 % (39.0-51.0)
[2017-01-17 07:22] LABS: REVIEW FLAG FINAL
--- NOTE | 2017-01-17 07:57 | PD.ORT.PN ---
Subjective Subjective Remarks pt painful today. No complaints of chest pain. Objective Vitals Vital Signs Date Time Temp Pulse Resp B/P Pulse Ox O2 Delivery O2 Flow Rate FiO2 01/17/17 04:00 99.4 84 17 140/75 96 01/17/17 00:00 99.9 85 18 154/74 96 01/16/17 19:00 98.2 88 18 145/67 96 01/16/17 16:00 99.1 82 18 127/72 92 01/16/17 12:00 70 01/16/17 12:00 98.5 70 18 118/55 96 01/16/17 10:00 76 01/16/17 08:05 99 Nasal Cannula 1.50 01/16/17 08:00 98.3 68 26 111/56 99 01/16/17 08:00 68 I/O 01/16/17 01/16/17 01/16/17 01/17/17 01/17/17 01/17/17 07:00 15:00 23:00 07:00 15:00 23:00 Intake Total 458 ml 636 ml 480 ml 240 ml Output Total 750 ml 550 ml 500 ml 450 ml Balance -292 ml 86 ml -20 ml -210 ml Intake Oral 120 ml 476 ml 480 ml 240 ml IV Total 338 ml 160 ml Output Urine Total 750 ml 550 ml 500 ml 450 ml # Bowel Movements 0 0 0 0 Result Diagram: 01/17/17 0635 01/16/17 0330 Objective Remarks Knee dressings dry and intact. No calf tenderness. Assessment & Plan Ortho Post Op Day #: 2 Problem List: Assessment and Plan Doing well overall. Try tramadol for extra pain control. Cont PT. Cathy Rivas MD Jan 17, 2017 07:57
[2017-01-17] MEDS: INSULIN ASPART SUPPLEMENTAL SCALE SQ SCH ×5 (08:07→21:00)
[2017-01-17] MEDS ORDERED: traMADol HCL 50 MG TAB PO ONE (08:30)
[2017-01-17] MEDS: DOCUSATE SODIUM 100 MG CAP PO SCH ×2 (08:55→22:24)
[2017-01-17] MEDS: SODIUM CHLORIDE 0.9% FLUSH 5 ML FLUSH IVF SCH (08:55)
[2017-01-17] MEDS: ATORVASTATIN 10 MG TAB PO SCH (08:56)
[2017-01-17] MEDS: MULTIVITAMINS/MINERALS THERAPEUTIC TAB PO SCH ×2 (08:56→22:24)
[2017-01-17] MEDS: METOPROLOL TARTRATE 25 MG TAB PO SCH ×2 (08:56→22:23)
[2017-01-17] MEDS: DOCUSATE SODIUM 50 MG/SENNA 8.6 MG TAB PO SCH ×2 (08:56→21:00)
[2017-01-17] MEDS: ASPIRIN EC 81 MG TABEC PO SCH (08:56)
[2017-01-17] MEDS: CHOLECALCIFEROL (VIT D3) LIQ 400 UNITS/ML 50 ML BOTTLE PO SCH (09:59)
[2017-01-17] MEDS ORDERED: BACITRACIN OINT 0.9 GM PKT TOP PRN (10:15)
[2017-01-17] MEDS: LACTATED RINGER'S 1000 ML INJ 1,000 ML IV SCH (11:00)
--- NOTE | 2017-01-17 14:06 | HHI.PR ---
Subjective Remarks Patient is in the chair. Says he has some pain but is fairly controlled by meds. No palpitations, n/v/d/c. Denies chest pain or sob. Objective Vitals Vital Signs Date Time Temp Pulse Resp B/P Pulse Ox O2 Delivery O2 Flow Rate FiO2 01/17/17 12:00 96.2 76 18 119/66 94 01/17/17 10:37 93 21 01/17/17 09:07 Room Air 01/17/17 08:00 97.6 77 18 124/72 93 01/17/17 04:00 99.4 84 17 140/75 96 01/17/17 00:00 99.9 85 18 154/74 96 01/16/17 19:00 98.2 88 18 145/67 96 01/16/17 16:00 99.1 82 18 127/72 92 I/O 01/16/17 01/16/17 01/16/17 01/17/17 01/17/17 01/17/17 07:00 15:00 23:00 07:00 15:00 23:00 Intake Total 458 ml 636 ml 480 ml 240 ml Output Total 750 ml 550 ml 500 ml 450 ml Balance -292 ml 86 ml -20 ml -210 ml Intake Oral 120 ml 476 ml 480 ml 240 ml IV Total 338 ml 160 ml Output Urine Total 750 ml 550 ml 500 ml 450 ml # Bowel Movements 0 0 0 0 Result Diagram: 01/17/17 0635 01/16/17 0330 Imaging Last Impressions Knee X-Ray 01/15/17911 Signed Impressions: Service Date/Time: Sunday, January 15, 2017 15:12 - CONCLUSION: Status post total knee arthroplasty. Piotr Singletary MD Objective Remarks GENERAL: Well-nourished, well-developed patient, in no apparent distress. SKIN: No rashes, ecchymoses or lesions. Cool and dry. HEENT: Atraumatic. Normocephalic. Pupils equal round and reactive. Extraocular motions intact. No scleral icterus. No injection or drainage. Nose without bleeding. Airway patent. NECK: Trachea midline. No JVD or lymphadenopathy. Supple. CARDIOVASCULAR: RRR. No murmur appreciated. RESPIRATORY: Clear to auscultation. Breath sounds equal bilaterally. No wheezes , rales, or rhonchi. GASTROINTESTINAL: Abdomen soft, non-tender, nondistended. No guarding. MUSCULOSKELETAL: Extremities without clubbing, cyanosis, or edema. Bilateral knee dressings noted, with bilateral splints. Nerve block given. NEUROLOGICAL: Awake and alert. Cranial nerves II through XII intact. Motor and sensory grossly within normal limits. Five out of 5 muscle strength in all muscle groups. Normal speech. A/P Problem List: (1) Status post total bilateral knee replacement ICD Code: Z96.653 Status: Acute (2) Osteoarthritis of knees, bilateral ICD Code: M17.0 Status: Acute Assessment and Plan Mr. Arreola is a 71-year old male patient with a known history of type 2 diabetes mellitus, prostate cancer, bilateral osteoarthritis of knees, and chronic neck and back pain who is status post bilateral knee arthroplasty by Dr. Rivas. Hospitalist team has been consulted for medical management. Status post bilateral knee arthroplasty - Control pain. Morphina IV HEAD SAMPLER PRN. [place] tablets PO PRN per pain scale. Monitor for constipation, Colace 100 mg PO BID. Milk of magnesium PRN. - Activity and dressing changes per orthopedic surgery recommendations. - PT evaluation and treatment. OOB as tolerated. Tachycardia with left bundle branch block, acute - STAT EKG performed and reviewed showing sinus tachycardia with left bundle branch block. - Cardiology called and consulted, appreciate input. 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 - Trop negative. CPK negative. - 2-D ECHO pending. - Continuous cardiac monitoring. Monitor closely. - Supplemental oxygen as needed to keep SpO2 > 92%. -Monitor on telemetry Type 2 diabetes mellitus - Hold home meds during hospitalization. Restart home meds at [place]. Place patient on ACCU checks, sliding scale insulin, cover as needed DVT prophylaxis: SCDs/Chemical prophylaxis per surgery recommendations. Improved. HR is better controlled, transfer to ortho floor. Lani Steele MD Jan 17, 2017 14:06
[2017-01-17] MEDS ORDERED: DEXTROSE 50% IN WATER 50 ML VIAL(D50) IV PRN (14:15)
[2017-01-17] MEDS ORDERED: GLUCAGON 1 MG/ML VIAL OTHER PRN (14:15)
--- NOTE | 2017-01-17 14:35 | ECHRPT ---
Indication: Chest pain, unspecified Indication: Chest pain, unspecified CONCLUSIONS Aortic valve sclerosis is present.There is trace tricuspid valve regurgitation. There is estimated m ild pulmonary hypertension present (range 40-50 mmHg).The pulmonary valve is not well visualized. BP: 118 / 55 HR: Rhythm: Sinus MEASUREMENTS (Male / Female) Normal Values Technical Quality:Good 2D ECHO LV Diastolic Diameter PLAX 4.9 cm 4.2 - 5.9 / 3.9 - 5.3 cm LV Systolic Diameter PLAX 3.3 cm IVS Diastolic Thickness 1.1 cm 0.6 - 1.0 / 0.6 - 0.9 cm LVPW Diastolic Thickness 1.1 cm 0.6 - 1.0 / 0.6 - 0.9 cm LV Relative Wall Thickness 0.4 RV Internal Dim ED PLAX 2.6 cm LVOT Diameter 2.1 cm LA Systolic Diameter LX 3.2 cm 3.0 - 4.0 / 2.7 - 3.8 cm M-MODE Aortic Root Diameter MM 2.6 cm AV Cusp Separation MM 1.7 cm DOPPLER AV Peak Velocity 197.0 cm/s AV Peak Gradient 15.5 mmHg LVOT Peak Velocity 152.0 cm/s LVOT Peak Gradient 9.2 mmHg AV Area Cont Eq pk 2.7 cm MV Area PHT 3.1 cm Mitral E Point Velocity 69.1 cm/s Mitral A Point Velocity 72.6 cm/s Mitral E to A Ratio 1.0 LV E' Lateral Velocity 8.0 cm/s Mitral E to LV E' Lateral Ratio 8.6 LV E' Septal Velocity 10.4 cm/s Mitral E to LV E' Septal Ratio 6.6 TV Peak Velocity 316.0 cm/s PV Peak Velocity 133.0 cm/s PV Peak Gradient 7.1 mmHg FINDINGS Left Ventricle The left ventricular systolic function is normal with an estimated ejection fraction in the range of 60-65%. Right Ventricle Normal right ventricular size and systolic function. Left Atrium The left atrial size is normal. Right Atrium The right atrial size is normal. Atrial Septum Normal atrial septal thickness without atrial level shunting by limited color doppler interrogation. Aorta The aortic root and proximal ascending aorta are normal in size on limited imaging. Mitral Valve Structurally normal mitral valve. No mitral valve stenosis or regurgitation. Aortic Valve Trileaflet aortic valve. Aortic valve sclerosis is present. Tricuspid Valve Structurally normal tricuspid valve. There is trace tricuspid valve regurgitation. There is estimate d mild pulmonary hypertension present (range 40-50 mmHg). Pulmonary Valve The pulmonary valve is not well visualized. Vessels The inferior vena cava is normal in size. Pericardium No pericardial effusion. Alfonso Up MD, FACC, [facility] [place] (Electronically Signed) Final Date:17 January 2017 14:34
[2017-01-17] MEDS ORDERED: traMADol HCL 50 MG TAB PO PRN (15:00)
--- NOTE | 2017-01-17 18:22 | EKG ---
Date Performed: 01/16/2017 Time Performed: 18:38:07 PTAGE: 71 years EKG: Sinus rhythm LEFT BUNDLE BRANCH BLOCK ABNORMAL ECG PREVIOUS TRACING : 01/15/2017 22.06 Compared to prior tracing no significant change DOCTOR: Benton Gresham Interpretating Date/Time 01/17/2017 18:20:58
[2017-01-18] VITALS: BP_SYST 128; BP_SYST 150; BP_DIAS 66; BP_DIAS 81; PULSE 79; PULSE 93; RESP 20; TEMP 97.8; O2SAT 95
[2017-01-18] MEDS: ENOXAPARIN SODIUM 30 MG/0.3 ML SYRINGE SQ SCH ×2 (03:02→13:39)
[2017-01-18 08:00] VITALS: BP 113/71; PULSE 107; RESP 16; TEMP 97.3; O2SAT 92
[2017-01-18] MEDS: SODIUM CHLORIDE 0.9% FLUSH 5 ML FLUSH IVF SCH (09:00)
[2017-01-18] MEDS: CHOLECALCIFEROL (VIT D3) LIQ 400 UNITS/ML 50 ML BOTTLE PO SCH (09:00)
[2017-01-18] MEDS: MULTIVITAMINS/MINERALS THERAPEUTIC TAB PO SCH (09:36)
[2017-01-18] MEDS: ATORVASTATIN 10 MG TAB PO SCH (09:36)
[2017-01-18] MEDS: ASPIRIN EC 81 MG TABEC PO SCH (09:37)
[2017-01-18] MEDS: DOCUSATE SODIUM 50 MG/SENNA 8.6 MG TAB PO SCH (09:37)
[2017-01-18] MEDS: DOCUSATE SODIUM 100 MG CAP PO SCH (09:37)
[2017-01-18] MEDS: METOPROLOL TARTRATE 25 MG TAB PO SCH (09:37)
[2017-01-18] MEDS: INSULIN ASPART SUPPLEMENTAL SCALE SQ SCH ×3 (09:45→16:54)
[2017-01-18] MEDS: ACETAMINOPHEN/HYDROcodone 325 MG/10 MG TAB PO PRN ×2 (09:46→13:53)
--- NOTE | 2017-01-18 09:49 | PD.ORT.PN ---
Subjective Subjective Remarks pt more comfortable today. Objective Vitals Vital Signs Date Time Temp Pulse Resp B/P Pulse Ox O2 Delivery O2 Flow Rate FiO2 01/18/17 00:00 97.8 79 20 128/66 95 01/17/17 20:26 92 21 01/17/17 20:00 Room Air 01/17/17 20:00 97.4 89 18 123/65 94 01/17/17 16:00 98.0 80 18 132/60 91 01/17/17 12:00 96.2 76 18 119/66 94 01/17/17 10:37 93 21 I/O 01/17/17 01/17/17 01/17/17 01/18/17 01/18/17 01/18/17 07:00 15:00 23:00 07:00 15:00 23:00 Intake Total 240 ml 1200 ml 780 ml 290 ml Output Total 450 ml 400 ml Balance -210 ml 1200 ml 380 ml 290 ml Intake Oral 240 ml 1200 ml 780 ml 240 ml IV Total 50 ml Output Urine Total 450 ml 400 ml # Voids 2 2 # Bowel Movements 0 0 0 0 Result Diagram: 01/17/17 0635 01/16/17 0330 Objective Remarks Knee dressings dry and intact. No calf tenderness. Assessment & Plan Ortho Post Op Day #: 3 Problem List: Assessment and Plan Doing well overall. Tramadol for extra pain control is working well. Cont PT. Rehab placement today. Cathy Rivas MD Jan 18, 2017 09:49
--- NOTE | 2017-01-18 09:51 | HHI.DS ---
Discharge Summary Admission Date Jan 15, 2017 at 06:18 Discharge Date: Jan 18, 2017 Admitting Diagnosis Osteoarthritic degeneration right and left knees. Diagnosis: (1) Status post total bilateral knee replacement Brief History This is a 71 year old male patient CBC/BMP: 01/17/17 0635 01/16/17 0330 Significant Findings Laboratory Tests Test 01/15/17 01/15/17 01/16/17 01/17/17 16:23 23:10 03:30 06:35 Red Blood Count 4.25 MIL/MM3 (4.50-5.90) Hematocrit 37.7 % 32.5 % 27.9 % (39.0-51.0) (39.0-51.0) (39.0-51.0) Platelet Count 139 TH/MM3 (150-450) Neutrophils (%) (Auto) 90.9 % (16.0-70.0) Lymphocytes (%) (Auto) 6.5 % (9.0-44.0) Neutrophils # (Auto) 8.7 TH/MM3 (1.8-7.7) Lymphocytes # (Auto) 0.6 TH/MM3 (1.0-4.8) Chloride Level 108 MEQ/L (98-107) Blood Urea Nitrogen 19 MG/DL (7-18) Creatinine 1.36 MG/DL (0.60-1.30) Estimat Glomerular Filtration 52 ML/MIN (>89) 63 ML/MIN (>89) Rate Random Glucose 200 MG/DL 204 MG/DL (74-106) (74-106) Troponin I LESS THAN 0.02 LESS THAN 0.02 NG/ML NG/ML (0.02-0.05) (0.02-0.05) Total Protein 5.8 GM/DL 5.3 GM/DL (6.4-8.2) (6.4-8.2) Total Creatine Kinase 430 U/L (39-308) Creatine Kinase MB 5.3 NG/ML (0.5-3.6) Hemoglobin 11.6 GM/DL 10.0 GM/DL (13.0-17.0) (13.0-17.0) Albumin 3.0 GM/DL (3.4-5.0) PE at Discharge Knee dressings dry and intact. No calf tenderness. Hospital Course Patient underwent bilateral total knee arthroplasties on day of admission. He received a course of prophylactic IV antibiotics and started on anticoagulation therapy. He continued to improve remained afebrile vital signs stable and neurovascularly intact tolerating food and fluid well switched to by mouth pain meds which seemed to be holding him and he was discharged to inpatient rehabilitation on third postoperative day in good condition with instructions for continuation of care. Pt Condition on Discharge: Good Discharge Disposition: Rehab Inpatient Discharge Instructions Diet Instructions: As Tolerated, No Restrictions Activities You Can Perform: Full Weight Bearing, Shower Only-No Bath Activities to Avoid: Bathing, Driving Cathy Rivas MD Jan 18, 2017 09:51
[2017-01-18 12:00] VITALS: BP 106/69; PULSE 84; RESP 18; TEMP 97.1; O2SAT 97
[2017-01-18] MEDS: LACTATED RINGER'S 1000 ML INJ 1,000 ML IV SCH (12:00)
--- NOTE | 2017-01-18 12:09 | HHI.PR ---
Subjective Remarks He is in the chair. Says pain is fairly controlled. Says she will go to SNF. Patient denies any cp, sob. He feels tired. Says she did have a small BM but feels he is constipated. No n/v. No fever or chills. Objective Vitals Vital Signs Date Time Temp Pulse Resp B/P Pulse Ox O2 Delivery O2 Flow Rate FiO2 01/18/17 08:00 97.3 107 16 113/71 92 01/18/17 00:00 97.8 79 20 128/66 95 01/17/17 20:26 92 21 01/17/17 20:00 Room Air 01/17/17 20:00 97.4 89 18 123/65 94 01/17/17 16:00 98.0 80 18 132/60 91 I/O 01/17/17 01/17/17 01/17/17 01/18/17 01/18/17 01/18/17 07:00 15:00 23:00 07:00 15:00 23:00 Intake Total 240 ml 1200 ml 780 ml 290 ml Output Total 450 ml 400 ml Balance -210 ml 1200 ml 380 ml 290 ml Intake Oral 240 ml 1200 ml 780 ml 240 ml IV Total 50 ml Output Urine Total 450 ml 400 ml # Voids 2 2 # Bowel Movements 0 0 0 0 Result Diagram: 01/17/17 0635 01/16/17 0330 Other Results Last Impressions Knee X-Ray 01/15/17 09 Signed Impressions: Service Date/Time: Sunday, January 15, 2017 15:12 - CONCLUSION: Status post total knee arthroplasty. Piotr Singletary MD Objective Remarks GENERAL: Well-nourished, well-developed patient, in no apparent distress. SKIN: No rashes, ecchymoses or lesions. Cool and dry. HEENT: Atraumatic. Normocephalic. Pupils equal round and reactive. Extraocular motions intact. No scleral icterus. No injection or drainage. Nose without bleeding. Airway patent. NECK: Trachea midline. No JVD or lymphadenopathy. Supple. CARDIOVASCULAR: RRR. No murmur appreciated. RESPIRATORY: Clear to auscultation. Breath sounds equal bilaterally. No wheezes , rales, or rhonchi. GASTROINTESTINAL: Abdomen soft, non-tender, nondistended. No guarding. MUSCULOSKELETAL: Extremities without clubbing, cyanosis, or edema. Bilateral knee dressings noted, with bilateral splints. Nerve block given. NEUROLOGICAL: Awake and alert. Cranial nerves II through XII intact. Motor and sensory grossly within normal limits. Five out of 5 muscle strength in all muscle groups. Normal speech. A/P Problem List: (1) Status post total bilateral knee replacement ICD Code: Z96.653 Status: Acute (2) Osteoarthritis of knees, bilateral ICD Code: M17.0 Status: Acute Assessment and Plan Mr. Arreola is a 71-year old male patient with a known history of type 2 diabetes mellitus, prostate cancer, bilateral osteoarthritis of knees, and chronic neck and back pain who is status post bilateral knee arthroplasty by Dr. Rivas. Hospitalist team has been consulted for medical management. Status post bilateral knee arthroplasty - Control pain. Morphina IV HUB LEAD PRN. Dailey tablets PO PRN per pain scale. Monitor for constipation, Colace 100 mg PO BID. Milk of magnesium PRN. - Activity and dressing changes per orthopedic surgery recommendations. - PT evaluation and treatment. OOB as tolerated. Tachycardia with left bundle branch block, acute noted immediately postsurgical - STAT EKG while n PACU performed and reviewed showing sinus tachycardia with left bundle branch block. EKG reviewed and findings discussed with Dr Mckay cardio. - Cardiology called and consulted, appreciate input. Spoke with Dr. Mckay, director hr communications cardiology, evaluated patient, recommends ASA and BB. - Trops negative. CPK negative. - 2-D ECHO with normal EF of 60-65 %, aortic valve sclerosis. - Continuous cardiac monitoring. Monitor closely. - Supplemental oxygen as needed to keep SpO2 > 92%. -Monitor on telemetry Anemia postsurgical HGB dropped from 13 to 10 . Monitor Transfuse id HGB < 7 or is symptomatic and HGB< 9. Can have ferrous sulfate as OP. Type 2 diabetes mellitus - Hold home meds during hospitalization. Restart home meds at DC. Place patient on ACCU checks, sliding scale insulin, cover as needed DVT prophylaxis: SCDs/Chemical prophylaxis per surgery recommendations. Improving. dc when cleared by cardio and ortho . Plan to DC to snf. patient to f /u as OP with PCP, cardiology and ortho Lani Steele MD Jan 18, 2017 12:08
[2017-01-18 12:14] VITALS: O2SAT 94
[2017-01-18] MEDS ORDERED: ENOX30P SQ (14:46)
[2017-01-18] MEDS ORDERED: HYDR-3366 PO (14:46)
[2017-01-18 16:00] VITALS: BP 114/62; PULSE 58; RESP 16; TEMP 97.5; O2SAT 94
[2017-01-25] MEDS ORDERED: COMMODE 3-IN-11 MIS (11:05)
[2017-01-25] MEDS ORDERED: [UNRECOGNIZED DRUG - SUPPLY] (11:05)
[2017-01-29] MEDS ORDERED: ASPI-99 PO (08:41)
[2017-01-29] MEDS ORDERED: LIPI10TA PO (08:41)
[2017-01-29] MEDS ORDERED: OXYC1TAB36 PO (08:41)
[2017-01-29] MEDS ORDERED: MULTTAB67 PO (08:41)
[2017-01-29] MEDS ORDERED: METO25TA3 PO (08:41)
[2017-01-29] MEDS ORDERED: METF500T PO (08:41)
== END 2017-01-18 19:20 | DRG 462 ==
LOC: HSDI 01-15 06:18 → N03B 01-15 18:21 → N06A 01-16 14:37
PROVIDERS: ADMIT Surgery; ATTEND Surgery
PROC: 0SRC0J9 Replacement of Right Knee Joint with Synthetic Substitute, Cemented, Open Approach (ICD-10-PCS; 2017-01-15)
PROC: 3E0T3CZ (ICD-10-PCS; 2017-01-15)
PROC: 3E0T3CZ (ICD-10-PCS; 2017-01-15)
PROC: 0SRD0J9 Replacement of Left Knee Joint with Synthetic Substitute, Cemented, Open Approach (ICD-10-PCS; principal; 2017-01-15 09:44)
DX: M17.0 Bilateral primary osteoarthritis of knee (principal); I10 Essential (primary) hypertension; E11.9 Type 2 diabetes mellitus without complications; E78.5 Hyperlipidemia, unspecified; D64.9 Anemia, unspecified; G89.29 Other chronic pain; M54.2 Cervicalgia; M54.9 Dorsalgia, unspecified; I35.8 Other nonrheumatic aortic valve disorders; I44.7 Left bundle-branch block, unspecified; R00.0 Tachycardia, unspecified; K59.00 Constipation, unspecified; Z79.84 Long term (current) use of oral hypoglycemic drugs; Z85.46 Personal history of malignant neoplasm of prostate
CPT/HCPCS: 73560; 80053; 82550; 82552; 82948; 84484; 85014; 85018; 85025; 86850; 86900; 86901; 93005; 93306; 94150; C1776; C9290; J0690; J1100; J1650; J1815; J2175; J2250; J2270; J2370; J2405; J3010; J3370; J7050; J7120; L1830

== ENCOUNTER → 2017-02-22 | Day surgery (SDC) | payer OTHER, MEDICARE ==
[~2017-02-22] VITALS: Ht 165.1 cm; Wt 68.7 kg
[~2017-02-22] MED LIST: *morphine SULFATE 8 MG/ML PERIprocedure ONLY ONE; ACETAMINOPHEN 1000 MG/100 ML VIAL IV ONE; ASPI-99 PO; CHLORHEXIDINE GLUCONATE 2 % 1 PACK (2 CLOTHS) TOPICAL PRN; CHOL400D2 PO; COMMODE 3-IN-11 MIS; CPMMACHINE; DO NOT ADM ANY ANTICOAGULANT DRUGS PRN; ICOS1CAP PO; INSULIN HUMAN REGULAR 1,000 UNITS/10 ML VIAL SQ PRN; KETOROLAC TROMETHAMINE 30 MG/ML (IVP) VIAL ONE; KETOROLAC TROMETHAMINE 60 MG/2 ML (IM) VIAL IM ONE; LACTATED RINGER'S 1000 ML IV PRN; LIPI10TA PO; MAGN400T14 PO; MEPERIDINE HCL 50 MG/ML VIAL IM PRN; METF500T PO; METO25TA3 PO; METOPROLOL TARTRATE 25 MG TAB PO ONE; METOPROLOL TARTRATE 25 MG TAB PO PRN; MULTTAB67 PO; ONDANSETRON HCL 4 MG/2 ML VIAL IV PUSH PRN; OXYC1TAB36 PO; POVIDONE IODINE 5% (ANTISEPSIS KIT) 4 APPLICATIONS EACH NARE PRN; PROPOFOL 200 MG/20 ML AMP IV ONE; SODIUM CHLORID 0.9% 500 ML IV PRN; WALKER WHEELS/F1 MIS; [UNRECOGNIZED DRUG - SUPPLY]; oxyCODONE/ACETAMINOPHEN 10 MG/325 MG TAB PO PRN
[2017-02-22 08:21] LABS: AUTOMATED NEUTROPHIL # 2.7 TH/MM3 (1.8-7.7); BASOPHIL # 0.1 TH/MM3 (0-0.2); BASOPHIL % 1.4 % (0.0-2.0); EOSINOPHIL # 0.2 TH/MM3 (0-0.4); EOSINOPHIL % 3.6 % (0.0-4.0); HEMATOCRIT 38.7 % (39.0-51.0); HEMO FLAGS DIFF FINAL; LYMPH % 35.9 % (9.0-44.0); MEAN CELL VOLUME 88.1 FL (80.0-100.0); MEAN CORPUSCULAR HEMOGLOBIN 30.6 PG (27.0-34.0); MEAN CORPUSCULAR HGB CONC 34.7 % (32.0-36.0); MONO % 9.4 % (0.0-8.0); NEUT % 49.7 % (16.0-70.0); PLATELET COUNT 163 TH/MM3 (150-450); RED BLOOD COUNT 4.39 MIL/MM3 (4.50-5.90); RED CELL DISTRIBUTION WIDTH 14.1 % (11.6-17.2); WHITE BLOOD COUNT 5.4 TH/MM3 (4.0-11.0)
[2017-02-22 08:25] VITALS: BP 143/83; PULSE 65; RESP 18; TEMP 97.2; O2SAT 96
--- NOTE | 2017-02-22 08:54 | MH ---
cc: Cathy PITTMAN M.D. DATE OF ADMISSION: 02/22/2017 ADMITTING DIAGNOSIS Contractures of both total knee arthroplasties, now for manipulation under anesthesia, right and left knees. HISTORY OF PRESENT ILLNESS This is a pleasant 71-year-old diabetic male who is being admitted today for manipulation under anesthesia of both left and right total knees which were done 5-1/2 weeks ago. PAST MEDICAL HISTORY 1. Diabetes. 2. Prostate cancer in the past. 3. Broken thumb in the past. 4. Kidney problems. 5. Neck and back pain. 6. Dry skin. PAST SURGICAL HISTORY 1. Arthroscopy right knee 1999. 2. Broken thumb repair 2002. 3. Colonoscopy 2016. MEDICATIONS Current medications include metformin. SOCIAL HISTORY He does not smoke or drink. 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 REVIEW OF SYSTEMS Noncontributory. FAMILY HISTORY Noncontributory. ALLERGIES No known allergies. PHYSICAL EXAMINATION GENERAL: We find a 71-year-old male well-developed, well-nourished, oriented x3, complaining of stiffness in both knees. VITAL SIGNS: Blood pressure 114/70, pulse 62 and regular, respiration 14, temperature 97.6, pulse oximetry 97% on room air. HEENT: Eyes PERRLA, EOMI. Ears, nose and mouth clear. NECK: Supple. LUNGS: Clear. HEART: Regular rate. ABDOMEN: Soft. Positive bowel sounds. Nontender. EXTREMITIES: Lower extremities reveal contractures developing. He has -10 degrees short of full extension and only 60 degrees of flexion. Neurovascularly to his toes. IMPRESSION The impression at this time is stiff knees status post bilateral total knee arthroplasties 5-1/2 weeks ago. PLAN The plan is admission for manipulation under anesthesia both knees today. The patient was given a prescription for postoperative pain control in the office and will need to start therapy seven days a week the next two weeks. When he wakes up in the recovery room he should be on CPM machines for a while on both knees. JMD BENNY Oliva/DENISE /11:47 AM /8:51 AM
[2017-02-22 08:57] LABS: PROTHROMBIN TIME - PATIENT 10.7 SEC (9.8-11.6)
[2017-02-22 09:09] LABS: ANION GAP 5 MEQ/L (5-15); AST (GOT) 15 U/L (15-37); BICARBONATE 30.3 MEQ/L (21.0-32.0); BLOOD UREA NITROGEN 14 MG/DL (7-18); CHLORIDE 108 MEQ/L (98-107); GLOMERULAR FILTRATION RATE 73 ML/MIN (>89); POTASSIUM 3.9 MEQ/L (3.5-5.1); SODIUM (NA) 143 MEQ/L (136-145)
[2017-02-22 09:10] LABS: ALT (GPT) 27 U/L (12-78)
[2017-02-22 09:12] LABS: ALKALINE PHOSPHATASE 135 U/L (45-117); TOTAL BILIRUBIN ADULT 0.7 MG/DL (0.2-1.0)
[2017-02-22 12:00] VITALS: BP 163/76; PULSE 55; RESP 16; TEMP 97.6; O2SAT 100
--- NOTE | 2017-02-22 16:00 | MP ---
cc: Cathy RIVAS M.D. DATE OF SURGERY 02/22/2017 PREOPERATIVE DIAGNOSIS Frozen left and right total knees. POSTOPERATIVE DIAGNOSIS Frozen left and right total knees. SURGERY PERFORMED Manipulation under anesthesia left and right total knees. SURGEON Dr. Rivas ANESTHESIA Propofol PROCEDURE WAS FOLLOWS After successful induction of anesthesia, both knees were manipulated. Before manipulation range of motion was -10 to 60 degrees of flexion on both right and left knees. Post manipulation full extension to 135 degrees of flexion. The patient tolerated the procedure well and left the operating room in satisfactory condition. Cathy Rivas MD JRR/EO /9:49 AM /4:00 PM
== END | disposition home or self-care (01) ==
LOC: HSDC 07:42
PROVIDERS: ATTEND Surgery
DX: M24.562 Contracture, left knee (principal); M24.561 Contracture, right knee; M25.661 Stiffness of right knee, not elsewhere classified; M25.662 Stiffness of left knee, not elsewhere classified; E11.9 Type 2 diabetes mellitus without complications; Z85.46 Personal history of malignant neoplasm of prostate; Z96.651 Presence of right artificial knee joint; Z96.653 Presence of artificial knee joint, bilateral
CPT/HCPCS: 01380; 27570; 80053; 85025; 85610; 85730; J0131; J1885; J2270; J7120